=== PATIENT | female | born 1995 | race Caucasian/White ===

== ENCOUNTER 2016-09-05 12:38 | Outpatient (CLI) | payer MEDICAID ==
[~2016-09-05] VITALS: Ht 165.1 cm; Wt 87.7 kg
[2016-09-05 12:56] VITALS: Ht 165.1 cm; Wt 87.7 kg
[2016-09-05 12:57] VITALS: BP 111/60; PULSE 71
[2016-09-05] MEDS ORDERED: PRENAT PO (12:58)
--- NOTE | 2016-09-05 14:04 | RADRPT ---
PROCEDURE: OB ultrasound for biophysical profile CLINICAL INDICATION: Limited care. well being. TECHNIQUE: Multiple sonographic images of the pelvis were obtained. Transabdominal view of the gr avid uterus are available for review. The images were reviewed on a PACS workstation. COMPARISON: None FINDINGS: breathing movement = 2/2 tone = 2/2 motion = 2/2 MAGDALENO = 2/2 MAGDALENO = 8.2 cm, consistent with borderline oligohydramnios. Single live intrauterine with cardiac activity. heart rate equals 131 beats p er minute. Presentation is cephalic. The placenta is anterior, grade III. IMPRESSION: 1. Single viable intrauterine gestation. 2. Biophysical profile = 8/8. 3. MAGDALENO = 8.2 cm. RPTAT: KK .Francois Palacios MD, MD Date Time Electronically viewed and signed by .Francois Palacios MD, MD on 09/05/2016 14:04 .B/
--- NOTE | 2016-09-05 14:06 | RADRPT ---
PROCEDURE: US OB - Limited weight. CLINICAL INDICATION: Limited care. well being. TECHNIQUE: Multiple sonographic images of the pelvis were obtained. Transabdominal imaging only w as performed. The images were reviewed on a PACS workstation. COMPARISON: No prior studies are available for comparison. FINDINGS: There is a single viable intrauterine gestation. Cardiac activity is present with 137 beats per min fiordaliza. There is a cephalic presentation. Measurements were made in order to determine age. The results are as follows: BPD = 8.81 cm HC = 31.45 cm AC = 32.81 cm FL = 7.06 .cm Estimated gestational age of approximately 36 weeks 0 days +/ - 2 weeks 4 days by ultrasonographic evaluation The estimated date of delivery is 10/03/2016 by ultrasound. The EFW = 2901 g +/- 435 g (76%). The placenta is anterior, grade III. IMPRESSION: 1. Single viable intrauterine gestation of approximately 36 weeks 0 days gestation with estimated d ate of delivery of 10/03/2016 by ultrasound evaluation.. 2. The estimated weight is 2901 g (76%) . RPTAT: KK .Francois Palacios MD, Date Time Electronically viewed and signed by .Francois Palacios MD, MD on 09/05/2016 14:05 .B/
--- NOTE | 2016-09-05 14:57 | PN ---
Triage Information Date/Time 09/05/2016 Weeks of Gestation 39.6 : 2 Para: 1 Diabetes: none Hypertention: none Additional information sent in for EFW because of limited care Objective Vital Signs Date Time Temp Pulse Resp B/P Pulse Ox O2 Delivery O2 Flow Rate FiO2 09/05/16 12:57 98.0 71 111/60 Heart Rate: 140's Heart Rate Comments FHTs are R Contractions: None Exam closed cervix Results/Medications Imaging Results EFW 2901 +&- BPP 10/07 Assessment/Plan ? term gestation will do NST BPP on Thursday and obtain erika consult on Thursday CHAIM ROSE MD Sep 05, 2016 14:57
== END 2016-09-05 15:00 | disposition home or self-care (01) ==
LOC: OBT 12:38 → L-D 12:41 → OBT 15:00
PROVIDERS: ATTEND Obstetrics & Gynecology
DX: O36.5930 Maternal care for other known or suspected poor fetal growth, third trimester, not applicable or unspecified (principal); Z3A.36 36 weeks gestation of pregnancy
CPT/HCPCS: 76815; 76818; Z7500; G0463

== ENCOUNTER 2016-09-09 10:00 | Inpatient (IN) | payer MEDICAID ==
[~2016-09-09] VITALS: Ht 165.1 cm; Wt 87.7 kg
[~2016-09-09 10:00] MED LIST: PRENAT PO
[2016-09-09 11:00] VITALS: Ht 165.1 cm; Wt 87.7 kg
[2016-09-09] MEDS ORDERED: IBUPROFEN 600 MG TAB PO PRN (11:00)
[2016-09-09] MEDS ORDERED: OXYTOCIN 30 UNITS/LR 500 ML IV SCH ×3 (11:00→20:00)
[2016-09-09] MEDS ORDERED: MISOPROSTOL 200 MCG TAB PR PRN (11:00)
[2016-09-09] MEDS ORDERED: BUTORPHANOL 2 MG INJ IV PRN (11:00)
[2016-09-09] MEDS ORDERED: METHYLERGONOVINE 0.2 MG INJ IM PRN (11:00)
[2016-09-09] MEDS ORDERED: LIDOCAINE 1% (MPF) 30 ML INJ INJ PRN (11:00)
[2016-09-09] MEDS ORDERED: CARBOPROST 250 MCG INJ IM PRN (11:00)
[2016-09-09] MEDS ORDERED: OXYTOCIN 30 UNITS/LR 500 ML IV PRN (11:00)
[2016-09-09 11:02] VITALS: BP 114/62; PULSE 74; RESP 18
[2016-09-09 11:46] LABS: ADD SCAN DIFF NO
[2016-09-09 11:57] LABS: BASOPHILS % 0.1 % (0.0-2.0); EOSINOPHILS % 0.4 % (0.0-7.0); HEMATOCRIT 31.6 % (37.0-47.0); HEMOGLOBIN 10.6 g/dl (12.0-16.0); LYMPHOCYTES # 1.5 10^3/ul (0.8-2.9); LYMPHOCYTES % 18.9 % (15.0-51.0); MEAN CORPUSCULAR HEMOGLOBIN 30.9 pg (29.0-33.0); MEAN CORPUSCULAR HGB CONC 33.5 g/dl (32.0-37.0); MEAN CORPUSCULAR VOLUME 92.1 fl (82.0-101.0); MEAN PLATELET VOLUME 10.9 fl (7.4-10.4); MONOCYTE # 0.5 10^3/ul (0.3-0.9); NEUTROPHIL # 5.7 10^3/ul (1.6-7.5); NEUTROPHILS % 74.1 % (39.0-77.0); PLATELET COUNT 170 10^3/UL (140-415); RED BLOOD COUNT 3.43 10^6/ul (4.20-5.40); RED CELL DISTRIBUTION WIDTH 14.6 % (11.5-14.5); WHITE BLOOD COUNT 7.7 10^3/ul (4.8-10.8)
[2016-09-09] MEDS: LACTATED RINGER'S 1,000 ML IV SCH ×2 (11:57→19:24)
[2016-09-09 12:11] LABS: INR 0.94; PROTIME 12.6 Sec (12.2-14.2)
[2016-09-09 12:12] LABS: PARTIAL THROMBOPLASTIN TIME 26.6 Sec (25.0-35.0)
[2016-09-09] MEDS ORDERED: DINOPROSTONE 10 MG VAG SUPP VAG ONE (12:30)
[2016-09-09] MEDS ORDERED: LACTATED RINGER'S 1,000 ML IV PRN (15:00)
--- NOTE | 2016-09-09 16:21 | HP ---
Date/Time of Note Date/Time of Note DATE: 09/09/16 TIME: 16:17 OB - History Hx of Present Free Text/Dictation Admitted for induction of labor at 40+ weeks Last Menstrual Period: Dec 01, 2015 Estimated Due Date: Sep 06, 2016 : 2 Para: 1 Care: Limited Care Ultrasounds: Normal mid trimester US Obstetrical Complications: None Medical Complications: None Past Family/Social History * Past Medical, Surgical, Family and Obstetric Histories reviewed from chart. Blood Type: O+ Rubella: immune RPR/VDRL: Negative HBsAG: Negative OB Admission Exam Vital Signs Vital Signs Vital Signs Date Time Temp Pulse Resp B/P Pulse Ox O2 Delivery O2 Flow Rate FiO2 09/09/16 11:02 97.2 74 18 114/62 98 Room Air Physical Exam HEENT: WNL Heart: Rhythm Normal Lungs: Clear, Equal Abdomen: WNL Extremities: Normal Reflexes: Normal Cervical Dilatation: None Effacement: 0% Station: -3 Membranes: Intact Amniotic Fluid: Clear Heart Rate: 130's Accelerations: Accelerations Present Decelerations: No Decelerations Varibility: Marked Contractions on Admission: None Last 72 hours Lab Results CBC & BMP 09/09/16 11:30 OB Assessment/Plan Other Assessment: term gestation 40+ weeks gestation Induction Method: per Misoprostol Protocol CHAIM ROSE MD Sep 09, 2016 16:21
[2016-09-09] MEDS ORDERED: LACTATED RINGER'S 1,000 ML IV ONE (18:22)
[2016-09-09] MEDS ORDERED: ONDANSETRON 4 MG INJ IV ONE (18:30)
[2016-09-09] MEDS ORDERED: KETOROLAC 30 MG INJ IV PRN (18:30)
[2016-09-09] MEDS ORDERED: FENTAnyl 2MCG/ML-ROPIV 0.2% 100 ML BAG EPI SCH (18:30)
[2016-09-09] MEDS ORDERED: NALOXONE (0.4 MG/ML) INJ IV PRN (18:30)
[2016-09-09] MEDS ORDERED: ONDANSETRON 4 MG INJ IV PRN (18:30)
[2016-09-09] MEDS ORDERED: DIPHENHYDRAMINE 50 MG INJ IV PRN (18:30)
[2016-09-09] MEDS ORDERED: morphine 2 MG INJ IV PRN ×2 (18:30)
[2016-09-09] MEDS ORDERED: CITRIC ACID/SODIUM CITRATE 15 ML CUP PO ONE (18:30)
[2016-09-09] MEDS ORDERED: PROCHLORPERAZINE 10 MG INJ IV PRN (18:30)
[2016-09-09] MEDS ORDERED: CITRIC ACID/NA CITRATE 30 ML CUP PO ONE (19:00)
[2016-09-09] MEDS ORDERED: MINERAL OIL LIGHT 10 ML VIAL TOP ONE (21:00)
--- NOTE | 2016-09-09 22:44 | QN ---
Documentation Comment Patient with perineal gap results of a poorly or artery. Previous second- degree laceration patient was notified of the finding and we will revisit patient about 2 months after very very possible repair of perineal gap CHAIM ROSE MD Sep 09, 2016 22:44
--- NOTE | 2016-09-09 22:47 | LDN ---
Date/Time of Note Date/Time of Note DATE: 09/09/16 TIME: 22:44 Delivery Summary Normal spontaneous vaginal delivery of viable infant over intact perineum Weeks of Gestation 40+ Placenta Delivered: Spontaneously, Intact & Complete Meconium: none Episiotomy: No Perineal laceration: 0 Anesthesia type: Epidural Estimated blood loss: 300 Sponge & Needle done & correct: Yes All needle counts correct: Yes Any foreign bodies felt in the: No Problems: Delivery Information Sex Sex: female Apgars 1 Minute: 8 5 Minute: 9 Suctioning Nose & mouth suctioned at erika: Yes Delee suction performed: No Umbilical Cord Umbilical cord with: 3 Vessels Cord presentations: no nuchal cord Cord Blood was obtained: Yes Mother & Baby Disposition Disposition Mom & Baby to Maternity; Good: Yes (Mother and baby were recovered in good condition) Mom transferred to: Other (Maternity) Baby to NICU: No CHAIM ROSE MD Sep 09, 2016 22:47
[2016-09-10 00:35] VITALS: BP 103/57; PULSE 77; RESP 18
[2016-09-10] MEDS ORDERED: ACETAMINOPHEN/CODEINE #3 TAB PO PRN ×2 (01:00)
[2016-09-10] MEDS ORDERED: ZOLPIDEM 5 MG TAB PO PRN (01:00)
[2016-09-10] MEDS ORDERED: MISOPROSTOL 200 MCG TAB PR PRN (01:00)
[2016-09-10] MEDS: CEPHALEXIN 500 MG CAP PO SCH ×5 (01:00→23:26)
[2016-09-10] MEDS ORDERED: LANOLIN 7 GM TUBE TOP PRN (01:00)
[2016-09-10] MEDS ORDERED: METHYLERGONOVINE 0.2 MG INJ IM PRN (01:00)
[2016-09-10] MEDS ORDERED: WITCH HAZEL/GLYCERIN PAD PR PRN (01:00)
[2016-09-10] MEDS ORDERED: CARBOPROST 250 MCG INJ IM PRN (01:00)
[2016-09-10] MEDS ORDERED: DIBUCAINE 1% 30 GM OINT PR PRN (01:00)
[2016-09-10] MEDS ORDERED: OXYTOCIN 30 UNITS/LR 500 ML IV PRN (01:00)
[2016-09-10] MEDS ORDERED: BENZOCAINE 20% 56 ML SPRAY TOP PRN (01:00)
[2016-09-10] MEDS: LACTATED RINGER'S 1,000 ML IV* SCH ×3 (03:05→16:52)
[2016-09-10 03:50] VITALS: BP 112/58; PULSE 59; RESP 18
[2016-09-10] MEDS: IBUPROFEN 600 MG TAB PO SCH ×4 (05:29→23:26)
[2016-09-10 08:00] VITALS: BP 93/54; PULSE 61; RESP 18
[2016-09-10] MEDS: MAGNESIUM HYDROXIDE 30ML CUP PO SCH ×2 (09:18→20:46)
[2016-09-10] MEDS: SENNA/DOCUSATE NA (8.6MG/50MG) TAB PO SCH ×2 (09:18→20:46)
[2016-09-10 11:02] LABS: ADD SCAN DIFF NO
[2016-09-10 11:08] LABS: BASOPHILS % 0.2 % (0.0-2.0); EOSINOPHILS # 0.1 10^3/ul (0.0-0.5); EOSINOPHILS % 0.7 % (0.0-7.0); HEMATOCRIT 29.3 % (37.0-47.0); HEMOGLOBIN 9.9 g/dl (12.0-16.0); LYMPHOCYTES % 18.3 % (15.0-51.0); MEAN CORPUSCULAR HEMOGLOBIN 31.2 pg (29.0-33.0); MEAN CORPUSCULAR HGB CONC 33.8 g/dl (32.0-37.0); MEAN CORPUSCULAR VOLUME 92.4 fl (82.0-101.0); MEAN PLATELET VOLUME 10.9 fl (7.4-10.4); MONOCYTE # 0.6 10^3/ul (0.3-0.9); MONOCYTES % 5.1 % (0.0-11.0); NEUTROPHIL # 8.1 10^3/ul (1.6-7.5); NEUTROPHILS % 75.4 % (39.0-77.0); PLATELET COUNT 158 10^3/UL (140-415); RED BLOOD COUNT 3.17 10^6/ul (4.20-5.40); RED CELL DISTRIBUTION WIDTH 14.4 % (11.5-14.5); WHITE BLOOD COUNT 10.8 10^3/ul (4.8-10.8)
[2016-09-10 12:00] VITALS: BP 88/48; PULSE 74; RESP 18
--- NOTE | 2016-09-10 14:30 | DS ---
Date/Time of Note Date/Time of Note home next day DATE: 09/10/16 TIME: 14:29 Obstetrical Discharge Record Final Diagnosis Final Diagnosis: Term delivered Other Final Diagnosis S/P vaginal delivery Vaginal Delivery Obstetrical Delivery: Spontaneous Complications Augmentation: Yes Induction: Yes Condition on Discharge Physical Assessment Last Vitals: see nurses notes Voiding: Yes Bowel Movement: Yes Breast: Soft, non-tender, Filling Fundus: Firm Abdomen and Incision: soft BS + Episiotomy: NA Calf Tenderness: No Patient Condition: Good CHAIM ROSE MD Sep 10, 2016 14:30
--- NOTE | 2016-09-10 14:31 | PD.PPDC ---
RELASTER Discharge Instruction Provider Information Physician Information 21 y/o female had vaginal delivery Diagnosis Final Diagnosis: S/P vaginal delivery Condition Patient Condition: Good Diet Diet: Resume Regular Diet Activity/Restrictions Activity: Normal Activity May Shower Restrictions: Nothing in the Vagina Return to Work or School: Oct 27, 2016 Follow-up Follow-up with Physician: 4, Week/Weeks (in clinic ) Return to clinic for OB Instructions: Breast Tenderness Depression CHAIM ROSE MD Sep 10, 2016 14:31
[2016-09-10] MEDS ORDERED: IBUP-1542 PO (14:32)
[2016-09-10 16:48] VITALS: BP 124/58; PULSE 71; RESP 18
[2016-09-10 19:35] VITALS: BP 114/58; PULSE 74; RESP 18
[2016-09-11] MEDS: LACTATED RINGER'S 1,000 ML IV* SCH (00:52)
[2016-09-11 03:50] VITALS: BP 115/52; PULSE 65; RESP 17
[2016-09-11] MEDS: CEPHALEXIN 500 MG CAP PO SCH ×2 (05:29→12:39)
[2016-09-11] MEDS: IBUPROFEN 600 MG TAB PO SCH ×2 (05:29→12:46)
[2016-09-11 08:00] VITALS: BP 95/53; PULSE 65; RESP 18
[2016-09-11] MEDS ORDERED: MEASLES,MUMPS,RUBELLA VACCINE INJ SC* ONE (09:00)
[2016-09-11] MEDS ORDERED: DIPHTH/TET/ACEL PERTUSS (ADULT) 0.5 ML VIAL IM* ONE (09:00)
[2016-09-11] MEDS ORDERED: VARICELLA VACCINE LIVE/PF 1,350 UNIT/0.5 ML ML SC* ONE (09:00)
[2016-09-11] MEDS: MAGNESIUM HYDROXIDE 30ML CUP PO SCH (09:23)
[2016-09-11] MEDS: SENNA/DOCUSATE NA (8.6MG/50MG) TAB PO SCH (09:23)
== END 2016-09-11 13:40 | disposition home or self-care (01) | DRG 775 ==
LOC: L-D 10:09 → PP1 09-10 00:35
PROVIDERS: ADMIT Obstetrics & Gynecology; ATTEND Obstetrics & Gynecology
PROC: 10E0XZZ Delivery of Products of Conception, External Approach (ICD-10-PCS; principal; 2016-09-09 10:00)
PROC: 3E00X4Z Introduction of Serum, Toxoid and Vaccine into Skin and Mucous Membranes, External Approach (ICD-10-PCS; 2016-09-11)
DX: O48.0 Post-term pregnancy (principal); Z23 Encounter for immunization; Z3A.40 40 weeks gestation of pregnancy; Z37.0 Single live birth
CPT/HCPCS: 62319; 85025; 85610; 85730; 86592; 86900; 86901; 90715; 90716; J2405; J2590; J3010; J7120